=== PATIENT | male | born 2000 | race Caucasian/White ===

== ENCOUNTER → 2021-12-14 09:46 | Outpatient (CLI) | payer BC, SELFPAY ==
[2021-12-14 20:35] LABS: COVID19 - ORCAS (NP or Nasal) POSITIVE (Negative)
== END ==
PROVIDERS: Visit Provider Physician Assistant
DX: Z20.822 Contact with and (suspected) exposure to COVID-19 (principal)
CPT/HCPCS: U0003

== ENCOUNTER → 2023-06-05 09:15 | Outpatient (CLI) | payer BC, OTHER, SELFPAY ==
[2023-06-05 19:16] LABS: Add Manual Diff / Slide Review NO; Basophils Absolute Auto 100 /uL (0-100); Basophils Percent Auto 1.3 % (0-2); Eosinophils Absolute Auto 100 /uL (0-450); Eosinophils Percent Auto 2.5 % (2-4); Hematocrit 46.4 % (41-53); Lymphocytes Absolute Auto 1300 /uL (1100-4500); Lymphocytes Percent Auto 26.6 % (25-40); Mean Corpuscular HGB Conc 34.5 % (30-36); Mean Corpuscular Hemoglobin 30.6 PG (26-34); Mean Corpuscular Volume 88.8 fL (80-100); Monocytes Absolute Auto 400 /uL (0-900); Neutrophils Absolute Auto 3100 /uL (1500-7000); Neutrophils Percent Auto 61.6 % (50-75); Platelet Count 200 X10^3/uL (150-400); Red Blood Cell Count 5.22 X10^6/uL (4.5-5.9); Red Cell Distribution Width 12.4 % (11.6-14.8)
[2023-06-05 19:31] LABS: Alanine Aminotransferase 13 IU/L (<50); Albumin 4.4 g/dL (3.5-5.0); Albumin Globulin Ratio 1.5 (1.0-2.8); Alkaline Phosphatase 52 U/L (38-126); Aspartate Aminotransferase 20 IU/L (17-59); BUN Creatinine Ratio 16.3 (6-22); Bilirubin Total 0.7 mg/dL (0.2-1.3); Blood Urea Nitrogen 14 mg/dL (9-20); Calcium 9.6 mg/dL (8.4-10.2); Carbon Dioxide 29 mmol/L (22-32); Chloride 100 mmol/L (98-107); Cholesterol 165 mg/dL (140-199); Estimated Glomerular Filt Rate > 60 mL/min (>60); Globulin 2.9 g/dL (1.7-4.1); Glucose 90 mg/dL (70-100); HDL Cholesterol 47 mg/dL (40-60); HEMOLYSIS < 15 (0-50); LDL Cholesterol Calculated 107 mg/dL (<100); Potassium 4.4 mmol/L (3.4-5.1); Sodium 139 mmol/L (137-145); Total Protein 7.3 g/dL (6.3-8.2); Triglycerides 57 mg/dL (35-150)
[2023-06-05 19:55] LABS: TSH w/ Reflex to FT4 1.33 uIU/mL (0.47-4.68)
[2023-06-05 20:27] LABS: Hemoglobin A1C% w Est Avg Glu 5.3 % (4.0-6.0)
== END ==
PROVIDERS: PCP Family Medicine; Visit Provider Family Medicine
DX: F64.9 Gender identity disorder, unspecified (principal)
CPT/HCPCS: 80053; 80061; 83036; 84443; 85025

== ENCOUNTER → 2023-08-27 12:00 | Outpatient (CLI) | payer BC, OTHER, MEDICAID, SELFPAY ==
[2023-08-27 19:23] LABS: Blood Urea Nitrogen 15 mg/dL (9-20); Calcium 9.6 mg/dL (8.4-10.2); Carbon Dioxide 29 mmol/L (22-32); Chloride 100 mmol/L (98-107); Estimated Glomerular Filt Rate > 60 mL/min (>60); Glucose 90 mg/dL (70-100); HEMOLYSIS < 15 (0-50); Potassium 4.5 mmol/L (3.4-5.1); Sodium 136 mmol/L (137-145)
[2023-08-27 20:29] LABS: Estradiol, Total 360.4 pg/mL
== END ==
PROVIDERS: PCP Family Medicine; Visit Provider Family Medicine
DX: Z79.899 Other long term (current) drug therapy (principal); F64.9 Gender identity disorder, unspecified; Z79.818 Long term (current) use of other agents affecting estrogen receptors and estrogen levels
CPT/HCPCS: 80048; 82670

== ENCOUNTER → 2023-11-20 14:26 | Outpatient (CLI) | payer BC, OTHER, MEDICAID, SELFPAY ==
[2023-11-20 21:44] LABS: Alanine Aminotransferase 12 IU/L (<50); Albumin 4.3 g/dL (3.5-5.0); Albumin Globulin Ratio 1.6 (1.0-2.8); Alkaline Phosphatase 53 U/L (38-126); Aspartate Aminotransferase 44 IU/L (17-59); BUN Creatinine Ratio 13.1 (6-22); Bilirubin Total 0.7 mg/dL (0.2-1.3); Blood Urea Nitrogen 13 mg/dL (9-20); Calcium 9.1 mg/dL (8.4-10.2); Carbon Dioxide 31 mmol/L (22-32); Chloride 103 mmol/L (98-107); Estimated Glomerular Filt Rate > 60 mL/min (>60); Globulin 2.7 g/dL (1.7-4.1); Glucose 94 mg/dL (70-100); HEMOLYSIS 17 (0-50); Potassium 4.4 mmol/L (3.4-5.1); Sodium 137 mmol/L (137-145)
[2023-11-20 22:16] LABS: Estradiol, Total 147.5 pg/mL
[2023-11-23 03:47] LABS: Testosterone 238 ng/dL (132-813)
== END ==
PROVIDERS: PCP Family Medicine; Visit Provider Family Medicine
DX: F64.9 Gender identity disorder, unspecified (principal); Z79.818 Long term (current) use of other agents affecting estrogen receptors and estrogen levels; Z79.899 Other long term (current) drug therapy
CPT/HCPCS: 80053; 82670; 84403

== ENCOUNTER → 2024-02-18 13:02 | Outpatient (CLI) | payer BC, OTHER, MEDICAID, SELFPAY ==
[2024-02-18 19:36] LABS: Alanine Aminotransferase 10 IU/L (<50); Albumin 4.3 g/dL (3.5-5.0); Albumin Globulin Ratio 1.7 (1.0-2.8); Alkaline Phosphatase 64 U/L (38-126); Aspartate Aminotransferase 21 IU/L (17-59); BUN Creatinine Ratio 16.3 (6-22); Bilirubin Total 0.4 mg/dL (0.2-1.3); Blood Urea Nitrogen 16 mg/dL (9-20); Calcium 9.4 mg/dL (8.4-10.2); Carbon Dioxide 26 mmol/L (22-32); Chloride 101 mmol/L (98-107); Estimated Glomerular Filt Rate > 60 mL/min (>60); Globulin 2.6 g/dL (1.7-4.1); Glucose 57 mg/dL (70-100); HEMOLYSIS < 15 (0-50); Potassium 4.8 mmol/L (3.4-5.1); Sodium 136 mmol/L (137-145); Total Protein 6.9 g/dL (6.3-8.2)
[2024-02-18 20:08] LABS: Estradiol, Total 103.9 pg/mL; Testosterone 116 ng/dL (132-813)
== END ==
PROVIDERS: PCP Family Medicine; Visit Provider Family Medicine
DX: F64.9 Gender identity disorder, unspecified (principal)
CPT/HCPCS: 80053; 82670; 84403

== ENCOUNTER → 2024-05-14 10:55 | Outpatient (CLI) | payer BC, SELFPAY ==
[2024-05-14 20:39] LABS: Alanine Aminotransferase 11 IU/L (<50); Albumin 4.4 g/dL (3.5-5.0); Albumin Globulin Ratio 1.7 (1.0-2.8); Alkaline Phosphatase 48 U/L (38-126); Aspartate Aminotransferase 35 IU/L (17-59); BUN Creatinine Ratio 18.4 (6-22); Bilirubin Total 0.6 mg/dL (0.2-1.3); Blood Urea Nitrogen 16 mg/dL (9-20); Calcium 9.4 mg/dL (8.4-10.2); Carbon Dioxide 28 mmol/L (22-32); Chloride 104 mmol/L (98-107); Estimated Glomerular Filt Rate > 60 mL/min (>60); Globulin 2.6 g/dL (1.7-4.1); Glucose 61 mg/dL (70-100); HEMOLYSIS < 15 (0-50); Potassium 4.5 mmol/L (3.4-5.1); Sodium 137 mmol/L (137-145)
[2024-05-14 21:11] LABS: Testosterone 146 ng/dL (132-813)
== END ==
PROVIDERS: PCP Family Medicine; Visit Provider Family Medicine
DX: F64.9 Gender identity disorder, unspecified (principal); Z79.899 Other long term (current) drug therapy
CPT/HCPCS: 80053; 82672; 84403

== ENCOUNTER → 2024-07-02 11:11 | Outpatient (CLI) | payer BC, SELFPAY ==
[2024-07-02 20:52] LABS: Prolactin 20.9 ng/mL (3.7-17.9)
[2024-07-02 21:08] LABS: Testosterone 23.7 ng/dL (132-813)
[2024-07-02 21:13] LABS: Estradiol, Total 223.9 pg/mL
[2024-07-02 21:46] LABS: Urine N gonorrhoeae NOT DETECTED
[2024-07-02 21:51] LABS: Urine Chlamydia NOT DETECTED
[2024-07-04 01:08] LABS: HBsAg Screen Negative (Negative); Hepatitis A Antibody IgM Negative (Negative); Hepatitis B Core Antibody IgM Negative (Negative); Hepatitis C Antibody Non Reactive (Non Reactive)
[2024-07-04 04:37] LABS: RPR Screen Non Reactive (Non Reactive)
== END ==
PROVIDERS: PCP Family Medicine; Visit Provider Family Medicine
DX: Z11.3 Encounter for screening for infections with a predominantly sexual mode of transmission (principal); Z79.818 Long term (current) use of other agents affecting estrogen receptors and estrogen levels; Z79.899 Other long term (current) drug therapy; F64.9 Gender identity disorder, unspecified
CPT/HCPCS: 80074; 82670; 84146; 84403; 86592; 86780; 87491; 87535; 87538; 87591

== ENCOUNTER → 2024-09-10 11:57 | Outpatient (CLI) | payer OTHER, SELFPAY ==
[2024-09-10 19:30] LABS: Prolactin 18.2 ng/mL (3.7-17.9)
[2024-09-10 19:31] LABS: Estradiol, Total 340.4 pg/mL
[2024-09-10 19:45] LABS: Testosterone 24.8 ng/dL (132-813)
== END ==
PROVIDERS: PCP Family Medicine; Visit Provider Family Medicine
DX: F64.9 Gender identity disorder, unspecified (principal); Z79.899 Other long term (current) drug therapy
CPT/HCPCS: 82670; 84146; 84403

== ENCOUNTER → 2024-11-06 14:28 | Outpatient (CLI) | payer OTHER, SELFPAY ==
[2024-11-06 19:23] LABS: Add Manual Diff / Slide Review NO; Basophils Absolute Auto 100 /uL (0-100); Basophils Percent Auto 0.7 % (0-2); Eosinophils Absolute Auto 100 /uL (0-450); Hemoglobin 13.2 g/dL (13.5-17.5); Lymphocytes Absolute Auto 900 /uL (1100-4500); Lymphocytes Percent Auto 6.7 % (25-40); Mean Corpuscular HGB Conc 33.8 % (30-36); Mean Corpuscular Hemoglobin 31.8 PG (26-34); Mean Corpuscular Volume 94.3 fL (80-100); Monocytes Absolute Auto 600 /uL (0-900); Monocytes Percent Auto 4.7 % (3-14); Neutrophils Absolute Auto 11200 /uL (1500-7000); Neutrophils Percent Auto 86.9 % (50-75); Platelet Count 190 X10^3/uL (150-400); Red Blood Cell Count 4.13 X10^6/uL (4.5-5.9); Red Cell Distribution Width 12.9 % (11.6-14.8); White Blood Cell Count 12.9 X10^3/uL (4.5-11.0)
[2024-11-06 19:29] LABS: HEMOLYSIS < 15 (0-50); Iron 43 ug/dL (49-181)
[2024-11-06 19:32] LABS: Alanine Aminotransferase 18 IU/L (<50); Albumin 4.6 g/dL (3.5-5.0); Alkaline Phosphatase 58 U/L (38-126); Aspartate Aminotransferase 24 IU/L (17-59); BUN Creatinine Ratio 17.6 (6-22); Bilirubin Total 0.4 mg/dL (0.2-1.3); Blood Urea Nitrogen 13 mg/dL (9-20); Calcium 9.2 mg/dL (8.4-10.2); Carbon Dioxide 25 mmol/L (22-32); Chloride 101 mmol/L (98-107); Estimated Glomerular Filt Rate > 60 mL/min (>60); Globulin 2.3 g/dL (1.7-4.1); Glucose 104 mg/dL (70-100); HEMOLYSIS < 15 (0-50); Potassium 4.1 mmol/L (3.4-5.1); Sodium 136 mmol/L (137-145); Total Protein 6.9 g/dL (6.3-8.2)
[2024-11-06 19:40] LABS: Percent Iron Saturation 15 % (20-50); Total Iron Binding Capacity 293 ug/dL (261-462); Transferrin 243 mg/dL (206-381)
[2024-11-06 19:50] LABS: Prolactin 29.4 ng/mL (3.7-17.9)
[2024-11-06 20:05] LABS: Estradiol, Total 711.3 pg/mL
[2024-11-06 20:07] LABS: Ferritin 73 ng/mL (18-464)
[2024-11-06 20:23] LABS: Vitamin B12 619 pg/mL (239-931)
[2024-11-08 20:39] LABS: Growth Hormone 3.9 ng/mL (0.0-10.0)
[2024-11-12 22:07] LABS: IGF-1 175 ng/mL (109-353)
[2024-11-18 07:41] LABS: Percent Free Testosterone 1.33 % (1.50-4.20); Testosterone Free 0.09 ng/dL (5.00-21.00); Testosterone Total 7.1 ng/dL (264.0-916.0)
== END ==
PROVIDERS: PCP Family Medicine; Visit Provider Advanced Practice Midwife
DX: Z00.00 Encounter for general adult medical examination without abnormal findings (principal); N64.3 Galactorrhea not associated with childbirth; R53.83 Other fatigue
CPT/HCPCS: 80053; 82607; 82670; 82728; 83540; 83550; 84146; 84270; 84305; 84402; 84403; 85025; 86277

== ENCOUNTER → 2024-12-18 14:27 | Outpatient (CLI) | payer OTHER, SELFPAY ==
[2024-12-18 19:44] LABS: Add Manual Diff / Slide Review NO; Basophils Absolute Auto 100 /uL (0-100); Basophils Percent Auto 0.9 % (0-2); Eosinophils Absolute Auto 300 /uL (0-450); Eosinophils Percent Auto 2.6 % (2-4); Hematocrit 40.6 % (41-53); Hemoglobin 13.6 g/dL (13.5-17.5); Lymphocytes Absolute Auto 1800 /uL (1100-4500); Lymphocytes Percent Auto 17.8 % (25-40); Mean Corpuscular HGB Conc 33.5 % (30-36); Mean Corpuscular Hemoglobin 31.4 PG (26-34); Mean Corpuscular Volume 93.7 fL (80-100); Monocytes Absolute Auto 700 /uL (0-900); Monocytes Percent Auto 6.3 % (3-14); Neutrophils Absolute Auto 7500 /uL (1500-7000); Neutrophils Percent Auto 72.4 % (50-75); Platelet Count 239 X10^3/uL (150-400); Red Blood Cell Count 4.33 X10^6/uL (4.5-5.9); Red Cell Distribution Width 12.7 % (11.6-14.8); White Blood Cell Count 10.3 X10^3/uL (4.5-11.0)
[2024-12-18 19:59] LABS: Prolactin 29.4 ng/mL (3.7-17.9)
[2024-12-18 20:16] LABS: Estradiol, Total 503.4 pg/mL
== END ==
PROVIDERS: PCP Family Medicine; Visit Provider Advanced Practice Midwife
DX: F64.9 Gender identity disorder, unspecified (principal); E34.9 Endocrine disorder, unspecified
CPT/HCPCS: 82670; 84146; 84270; 84402; 84403; 85025

== ENCOUNTER → 2025-06-15 12:02 | Outpatient (CLI) | payer SELFPAY ==
[2025-06-15 18:47] LABS: Add Manual Diff / Slide Review NO; Hematocrit 39.4 % (41-53); Hemoglobin 13.5 g/dL (13.5-17.5); Lymphocytes Absolute Auto 1200 /uL (1100-4500); Mean Corpuscular HGB Conc 34.3 % (30-36); Mean Corpuscular Hemoglobin 31.5 PG (26-34); Mean Corpuscular Volume 91.9 fL (80-100); Platelet Count 204 X10^3/uL (150-400)
[2025-06-15 18:58] LABS: Alanine Aminotransferase 10 IU/L (<50); Albumin 4.2 g/dL (3.5-5.0); Albumin Globulin Ratio 1.8 (1.0-2.8); Alkaline Phosphatase 54 U/L (38-126); Blood Urea Nitrogen 15 mg/dL (9-20); Calcium 9.3 mg/dL (8.4-10.2); Carbon Dioxide 29 mmol/L (22-32); Chloride 102 mmol/L (98-107); Estimated Glomerular Filt Rate > 60 mL/min (>60); Globulin 2.4 g/dL (1.7-4.1); Glucose 67 mg/dL (70-99); HEMOLYSIS < 15 (0-50); Potassium 4.2 mmol/L (3.4-5.1); Sodium 136 mmol/L (137-145); Total Protein 6.6 g/dL (6.3-8.2)
[2025-06-15 19:00] LABS: HEMOLYSIS 17 (0-50); Iron 106 ug/dL (49-181)
[2025-06-15 19:21] LABS: Percent Iron Saturation 37 % (20-50); Total Iron Binding Capacity 290 ug/dL (261-462); Transferrin 237 mg/dL (206-381)
[2025-06-15 19:33] LABS: Estradiol, Total 183.3 pg/mL
[2025-06-15 19:34] LABS: Ferritin 52 ng/mL (18-464)
[2025-06-15 19:56] LABS: Vitamin B12 607 pg/mL (239-931)
[2025-06-21 10:12] LABS: Percent Free Testosterone 1.44 % (1.50-4.20)
== END ==
PROVIDERS: PCP Family Medicine; Visit Provider Advanced Practice Midwife
DX: Z00.01 Encounter for general adult medical examination with abnormal findings (principal); E34.8 Other specified endocrine disorders; F64.9 Gender identity disorder, unspecified; D64.9 Anemia, unspecified; E61.1 Iron deficiency; R53.83 Other fatigue
CPT/HCPCS: 80053; 82607; 82670; 82728; 83540; 83550; 84270; 84402; 84403; 85025